=== PATIENT | female | born 1980 | race American Indian/Alaskan Native ===

== ENCOUNTER 2017-09-22 19:32 | Emergency (ER) | payer OTHER ==
[2017-09-22 20:08] VITALS: BP 173/76
[2017-09-22] MEDS ORDERED: MOTRIN PO ONE (22:10)
--- NOTE | 2017-09-22 22:14 | Emergency Department Report ---
ED ENT HPI - General Chief complaint: Dental/Oral Stated complaint: TOOTHACHE Time Seen by Provider: 09/22/17 21:50 Source: patient Mode of arrival: Ambulatory Limitations: No Limitations - History of Present Illness Initial comments: This is a 37-year-old female nontoxic, well nourished in appearance, no acute signs of distress presents to the ED with c/o of acute on chronic toothache x1 week. Patient denies any trauma to the region. Patient is rest pain as aching with level of 8 out of 10. Patient denies any facial swelling. Patient denies any numbness, tingling, fever, chills, nausea, vomiting, headache or stiff neck. Patient denies any drug allergies or significant past medical history. MD complaint: tooth pain -: days(s) Location: tooth # (3) 1 - pain Severity: mild Severity scale (0 -10): 8 Quality: aching Consistency: constant Improves with: none Worsens with: none Associated Symptoms: gum swelling, toothache. denies: fever, cough, pain with swallowing, sore throat, tinnitus, hearing loss, discharge from ear, rhinorrhea - Related Data Previous Rx's Medication Instructions Recorded Last Taken Type Butalb/Acetamin/Caff 50-325-40 1 each PO Q6HR PRN #20 tablet 04/11/14 Unknown Rx [Fioricet] Acetaminophen/Codeine 1 tab PO Q6H PRN #14 tab 06/03/14 Unknown Rx [Acetaminophen-Codeine #3 TAB] Levofloxacin [Levaquin TAB] 500 mg PO BID #14 tablet 06/03/14 Unknown Rx ALBUTEROL Inhaler [Proair] 2 puff IH QID PRN #1 inhalation 06/28/14 Unknown Rx HYDROcodone/APAP 5-325 [[place] 1 - 2 each PO Q6HR PRN #10 tablet 06/28/14 Unknown Rx 5-325 mg TAB] Ciprofloxacin HCl [Ciprofloxacin 500 mg PO Q12HR #20 tab 02/26/15 Unknown Rx TAB] HYDROcodone/APAP 10-325 [[place] 1 each PO Q4-6H PRN #20 tablet 02/26/15 Unknown Rx 10/325] Promethazine [Phenergan TAB] 25 mg PO Q6HR PRN #10 tab 02/26/15 Unknown Rx Cyclobenzaprine [Flexeril] 10 mg PO TID PRN #15 tablet 05/02/16 Unknown Rx Ibuprofen [Motrin 800 MG tab] 800 mg PO TID PRN #20 tablet 05/02/16 Unknown Rx Amoxicillin/K Clav Tab [Augmentin 1 tab PO Q12HR #20 tab 09/22/17 Unknown Rx 875 mg] Chlorhexidine Mouthwash [Peridex] 15 ml MM BID #1 bottle 09/22/17 Unknown Rx Ibuprofen [Motrin] 600 mg PO Q8H PRN #30 tablet 09/22/17 Unknown Rx traMADol [Ultram] 50 mg PO Q6HR PRN #15 tablet 09/22/17 Unknown Rx Allergies Allergy/AdvReac Type Severity Reaction Status Date / Time No Known Allergies Allergy Unverified 04/11/14 15:37 ED Dental HPI - General Chief complaint: Dental/Oral Stated complaint: TOOTHACHE Time Seen by Provider: 09/22/17 21:50 Source: patient Mode of arrival: Ambulatory Limitations: No Limitations - Related Data Previous Rx's Medication Instructions Recorded Last Taken Type Butalb/Acetamin/Caff 50-325-40 1 each PO Q6HR PRN #20 tablet 04/11/14 Unknown Rx [Fioricet] Acetaminophen/Codeine 1 tab PO Q6H PRN #14 tab 06/03/14 Unknown Rx [Acetaminophen-Codeine #3 TAB] Levofloxacin [Levaquin TAB] 500 mg PO BID #14 tablet 06/03/14 Unknown Rx ALBUTEROL Inhaler [Proair] 2 puff IH QID PRN #1 inhalation 06/28/14 Unknown Rx HYDROcodone/APAP 5-325 [[place] 1 - 2 each PO Q6HR PRN #10 tablet 06/28/14 Unknown Rx 5-325 mg TAB] Ciprofloxacin HCl [Ciprofloxacin 500 mg PO Q12HR #20 tab 02/26/15 Unknown Rx TAB] HYDROcodone/APAP 10-325 [[place] 1 each PO Q4-6H PRN #20 tablet 02/26/15 Unknown Rx 10/325] Promethazine [Phenergan TAB] 25 mg PO Q6HR PRN #10 tab 02/26/15 Unknown Rx Cyclobenzaprine [Flexeril] 10 mg PO TID PRN #15 tablet 05/02/16 Unknown Rx Ibuprofen [Motrin 800 MG tab] 800 mg PO TID PRN #20 tablet 05/02/16 Unknown Rx Amoxicillin/K Clav Tab [Augmentin 1 tab PO Q12HR #20 tab 09/22/17 Unknown Rx 875 mg] Chlorhexidine Mouthwash [Peridex] 15 ml MM BID #1 bottle 09/22/17 Unknown Rx Ibuprofen [Motrin] 600 mg PO Q8H PRN #30 tablet 09/22/17 Unknown Rx traMADol [Ultram] 50 mg PO Q6HR PRN #15 tablet 09/22/17 Unknown Rx Allergies Allergy/AdvReac Type Severity Reaction Status Date / Time No Known Allergies Allergy Unverified 04/11/14 15:37 ED Review of Systems ROS: Stated complaint: TOOTHACHE Other details as noted in HPI Constitutional: denies: chills, fever Eyes: denies: eye pain, eye discharge, vision change ENT: ear pain. denies: throat pain Respiratory: denies: cough, shortness of breath, wheezing Cardiovascular: denies: chest pain, palpitations Endocrine: no symptoms reported Gastrointestinal: denies: abdominal pain, nausea, diarrhea Genitourinary: denies: urgency, dysuria, discharge Musculoskeletal: denies: back pain, joint swelling, arthralgia Skin: denies: rash, lesions Neurological: denies: headache, weakness, paresthesias Psychiatric: denies: anxiety, depression Hematological/Lymphatic: denies: easy bleeding, easy bruising ED Past Medical Hx - Past Medical History Additional medical history: pneumonia - Surgical History Additional Surgical History: - Social History Smoking Status: Never Smoker Substance Use Type: None - Medications Home Medications: Home Medications Medication Instructions Recorded Confirmed Last Taken Type Butalb/Acetamin/Caff 50-325-40 1 each PO Q6HR PRN #20 tablet 04/11/14 Unknown Rx [Fioricet] Acetaminophen/Codeine 1 tab PO Q6H PRN #14 tab 06/03/14 Unknown Rx [Acetaminophen-Codeine #3 TAB] Levofloxacin [Levaquin TAB] 500 mg PO BID #14 tablet 06/03/14 Unknown Rx ALBUTEROL Inhaler [Proair] 2 puff IH QID PRN #1 inhalation 06/28/14 Unknown Rx HYDROcodone/APAP 5-325 [[place] 1 - 2 each PO Q6HR PRN #10 tablet 06/28/14 Unknown Rx 5-325 mg TAB] Ciprofloxacin HCl [Ciprofloxacin 500 mg PO Q12HR #20 tab 02/26/15 Unknown Rx TAB] HYDROcodone/APAP 10-325 [[place] 1 each PO Q4-6H PRN #20 tablet 02/26/15 Unknown Rx 10/325] Promethazine [Phenergan TAB] 25 mg PO Q6HR PRN #10 tab 02/26/15 Unknown Rx Cyclobenzaprine [Flexeril] 10 mg PO TID PRN #15 tablet 05/02/16 Unknown Rx Ibuprofen [Motrin 800 MG tab] 800 mg PO TID PRN #20 tablet 05/02/16 Unknown Rx Amoxicillin/K Clav Tab [Augmentin 1 tab PO Q12HR #20 tab 09/22/17 Unknown Rx 875 mg] Chlorhexidine Mouthwash [Peridex] 15 ml MM BID #1 bottle 09/22/17 Unknown Rx Ibuprofen [Motrin] 600 mg PO Q8H PRN #30 tablet 09/22/17 Unknown Rx traMADol [Ultram] 50 mg PO Q6HR PRN #15 tablet 09/22/17 Unknown Rx ED Physical Exam - General Limitations: No Limitations General appearance: alert, in no apparent distress - Head Head exam: Present: atraumatic, normocephalic - Eye Eye exam: Present: normal appearance Pupils: Present: normal accommodation - ENT ENT exam: Present: mucous membranes moist, TM's normal bilaterally, normal external ear exam - Expanded ENT Exam Expanded Ear exam: Present: normal external inspection Mouth exam: Present: normal external inspection, tongue normal. Absent: drooling, trismus, muffled voice, tongue elevation, laceration Teeth exam: Present: dental caries, fractured tooth # (3), dental tenderness # ( 3), gingival enlargement, other (No facial swelling.) Throat exam: Positive: normal inspection, other (Uvula midline. No abscess). Negative: tonsillar erythema, tonsillomegaly, tonsillar exudate, R peritonsillar mass, L peritonsillar mass - Neck Neck exam: Present: normal inspection, full ROM. Absent: tenderness, meningismus, lymphadenopathy, thyromegaly - Respiratory Respiratory exam: Present: normal lung sounds bilaterally. Absent: respiratory distress, wheezes, rales, rhonchi, stridor, chest wall tenderness, accessory muscle use, decreased breath sounds, prolonged expiratory - Cardiovascular Cardiovascular Exam: Present: regular rate, normal rhythm, normal heart sounds. Absent: systolic murmur, diastolic murmur, rubs, gallop - GI/Abdominal GI/Abdominal exam: Present: soft, normal bowel sounds - Extremities Exam Extremities exam: Present: normal inspection - Back Exam Back exam: Present: normal inspection - Neurological Exam Neurological exam: Present: alert, oriented X3 - Psychiatric Psychiatric exam: Present: normal affect, normal mood - Skin Skin exam: Present: warm, dry, intact, normal color. Absent: rash ED Course Vital Signs 09/22/17 20:04 Temperature 99.2 F Pulse Rate 71 Respiratory 18 Rate Blood Pressure 173/76 O2 Sat by Pulse 100 Oximetry - Reevaluation(s) Reevaluation #1: 09/22/17 22:12 Patient is speaking in full sentences with no signs of distress noted. Critical care attestation.: If time is entered above; I have spent that time in minutes in the direct care of this critically ill patient, excluding procedure time. ED Disposition Clinical Impression: Dental caries, Gingivitis Disposition: DC- TO HOME OR SELFCARE Is pt being admited?: No Does the pt Need Aspirin: No Condition: Stable Instructions: Dental Caries (ED), Gingivitis (ED), Tramadol (By mouth) Additional Instructions: Follow-up with a dentist in 3-5 days or if symptoms worsen and continue return to emergency room as soon as possible. Do not operate any machinery while taking Ultram due to drowsiness. Prescriptions: Amoxicillin/K Clav Tab [Augmentin 875 mg] 1 tab PO Q12HR #20 tab Chlorhexidine Mouthwash [Peridex] 15 ml MM BID #1 bottle Ibuprofen [Motrin] 600 mg PO Q8H PRN #30 tablet PRN Reason: Pain traMADol [Ultram] 50 mg PO Q6HR PRN #15 tablet PRN Reason: Pain Referrals: PRIMARY CARE, [Referring] - 3-5 Days EMILIANA MAURICIO MD [Staff Physician] - 3-5 Days [facility] [Outside] - 3-5 Days Forms: Work/School Release Form(ED)
== END 2017-09-22 22:20 | disposition home or self-care (01) ==
LOC: ED 19:32
DX: K02.9 Dental caries, unspecified (principal); K05.10 Chronic gingivitis, plaque induced; G89.29 Other chronic pain
CPT/HCPCS: 99282